=== PATIENT | male | born 1950 | race Two or more races ===

== ENCOUNTER 2025-02-13 08:49 | Inpatient (IN) | payer OTHER ==
[~2025-02-13] VITALS: Ht 134.6 cm; Wt 63.5 kg
[2025-02-13] MEDS ORDERED: SIMVASTATIN80 MG PO (09:01)
[2025-02-13] MEDS ORDERED: COZAAR50 MG PO (09:01)
[2025-02-13] MEDS ORDERED: CHILDREN'S ASPI81 MG PO (09:01)
[2025-02-13] MEDS ORDERED: ONDANSETRON HCL 2 MG/ML VIAL IV STA (09:02)
[2025-02-13] MEDS ORDERED: 0.9 % SODIUM CHLORIDE 1,000 ML IV STA ×2 (09:02→13:06)
[2025-02-13] MEDS ORDERED: FAMOTIDINE/PF 20 MG/2 ML VIAL IV STA (09:02)
[2025-02-13 10:01] LABS: BASO % 0.2 % (0.1-1.2); EOS # 0.00 (0.04-0.54); EOS % 0.0 % (0.7-7.0); LYMPH # 0.97 (1.18-3.74); LYMPH % 5.7 % (19.3-53.1); MEAN PLATELET VOLUME 11.20 fl (9.4-12.4); MONO # 0.98 (0.24-0.82); MONO % 5.8 % (4.7-12.5); NEUT # 14.84 (1.56-6.13); NEUT % 87.4 % (34.0-71.1); RED CELL DISTRIBUTION WIDTH 13.3 % (11.6-14.4)
[2025-02-13 10:28] LABS: INR 1.02
[2025-02-13 10:46] LABS: ALT/SGPT 18.0 U/L (12-78); AST/SGOT 29.0 U/L (15-37); BILIRUBIN TOTAL 0.69 mg/dL (0.3-1.2); BUN CREA RATIO 13.0 (7.0-25.0); CREATININE SERUM 0.71 mg/dL (0.70-1.30); GFR 107.86; GLOBULINA 4.4 G/DL (2.4-3.5); GLUCOSE FASTING 112.0 mg/dL (65-100); OSMOLALITY SERUM 279.0 MOSM/KG (275-295)
[2025-02-13 12:49] LABS: URINE APPEARANCE Clear; URINE BILIRRUBIN Negative (NEGATIVE); URINE BLOOD Small; URINE COLOR Yellow; URINE GLUCOSE Negative (NEGATIVE); URINE KETONE 15 (NEGATIVE); URINE LEUKOCYTE Negative; URINE NITRATE Negative; URINE PROTEIN Trace (NEGATIVE); URINE UROBILINOGEN 0.2 E.U./dl
[2025-02-13 12:53] LABS: URINE BACTERIA 5.9 uL (0.0-1933); URINE EPITHELIAL CELLS 4.6 uL (0.0-38.8); URINE RBC 62.4 uL (0.0-20.8); URINE WBC 3.9 uL (0.0-23.2)
[2025-02-13 12:58] LABS: URINE CAST 0.00 uL (0.0-1.40)
[2025-02-13] MEDS ORDERED: CEFTRIAXONE SODIUM 2,000 MG VIAL ONE (13:59)
[2025-02-13] MEDS ORDERED: FAMOTIDINE/PF 20 MG/2 ML VIAL ONE (13:59)
[2025-02-13] MEDS ORDERED: CEFTRIAXONE SODIUM 2,000 MG VIAL IV ONE (14:00)
[2025-02-13] MEDS ORDERED: CIPROFLOXACIN HCL 500 MG TABLET PO SCH (16:58)
[2025-02-13] MEDS ORDERED: MORPHINE SULFATE 2 MG/ML SYRINGE IV SCH (16:59)
[2025-02-13] MEDS ORDERED: 0.9 % SODIUM CHLORIDE 1,000 ML IV SCH (17:00)
[2025-02-13] MEDS ORDERED: CIPROFLOXACIN IN 5 % DEXTROSE 400 MG/200 ML PIGGYBAG IV SCH (17:29)
[2025-02-13] MEDS ORDERED: CIPROFLOXACIN IN 5 % DEXTROSE 400 MG/200 ML PIGGYBAG IV ONE (17:30)
[2025-02-13] MEDS ORDERED: METOPROLOL TARTRATE 50 MG TABLET PO SCH (21:03)
[2025-02-13] MEDS ORDERED: AMLODIPINE BESYLATE 5 MG TABLET PO SCH (21:03)
[2025-02-13] MEDS ORDERED: LOSARTAN POTASSIUM 100 MG TABLET PO SCH (21:03)
[2025-02-13] MEDS ORDERED: MORPHINE SULFATE 2 MG/ML SYRINGE IV PRN (21:04)
[2025-02-13] MEDS ORDERED: FAMOTIDINE/PF 20 MG in 0.9 % SODIUM CHLORIDE 8 ML IV PUSH SCH (21:10)
[2025-02-13] MEDS ORDERED: ONDANSETRON HCL 4 MG in 0.9 % SODIUM CHLORIDE 50 ML IV PRN (21:15)
[2025-02-13] MEDS ORDERED: RINGERS SOLUTION,LACTATED 1,000 ML IV SCH (21:15)
[2025-02-14 06:39] VITALS: BP 130/90
[2025-02-14 06:44] LABS: BASO % 0.1 % (0.1-1.2); EOS # 0.00 (0.04-0.54); EOS % 0.0 % (0.7-7.0); LYMPH # 1.14 (1.18-3.74); LYMPH % 7.5 % (19.3-53.1); MEAN PLATELET VOLUME 10.90 fl (9.4-12.4); MONO # 1.03 (0.24-0.82); MONO % 6.7 % (4.7-12.5); NEUT # 13.04 (1.56-6.13); NEUT % 85.4 % (34.0-71.1); RED CELL DISTRIBUTION WIDTH 13.3 % (11.6-14.4)
[2025-02-14 08:30] VITALS: BP 159/83
[2025-02-14 17:08] VITALS: BP 139/73; O2SAT 96
[2025-02-15 02:02] VITALS: BP 155/80; O2SAT 97
[2025-02-15 06:19] LABS: BASO % 0.4 % (0.1-1.2); EOS # 0.02 (0.04-0.54); EOS % 0.1 % (0.7-7.0); LYMPH # 1.02 (1.18-3.74); LYMPH % 7.5 % (19.3-53.1); MEAN PLATELET VOLUME 11.50 fl (9.4-12.4); MONO # 1.15 (0.24-0.82); MONO % 8.5 % (4.7-12.5); NEUT # 11.28 (1.56-6.13); NEUT % 83.1 % (34.0-71.1); RED CELL DISTRIBUTION WIDTH 13.5 % (11.6-14.4)
[2025-02-15 09:48] VITALS: BP 166/94; O2SAT 95
[2025-02-15 17:19] VITALS: BP 150/80; O2SAT 92
[2025-02-16 01:27] VITALS: BP 150/84; O2SAT 99
[2025-02-16 08:00] VITALS: BP 160/92; O2SAT 96
[2025-02-16] MEDS ORDERED: AMLODIPINE BESYLATE 5 MG TABLET PO SCH (17:00)
[2025-02-16 18:47] VITALS: BP 132/82
[2025-02-17 02:34] VITALS: BP 118/75; O2SAT 96
[2025-02-17 09:12] VITALS: BP 158/74; O2SAT 97
[2025-02-17 11:38] LABS: BASO % 0.5 % (0.1-1.2); EOS # 0.02 (0.04-0.54); EOS % 0.2 % (0.7-7.0); LYMPH # 1.83 (1.18-3.74); LYMPH % 13.9 % (19.3-53.1); MEAN PLATELET VOLUME 10.50 fl (9.4-12.4); MONO # 1.03 (0.24-0.82); MONO % 7.8 % (4.7-12.5); NEUT # 10.17 (1.56-6.13); NEUT % 77.1 % (34.0-71.1); RED CELL DISTRIBUTION WIDTH 13.3 % (11.6-14.4)
[2025-02-17 12:21] LABS: ALT/SGPT 25.0 U/L (12-78); AST/SGOT 21.0 U/L (15-37); BILIRUBIN TOTAL 0.77 mg/dL (0.3-1.2); BUN CREA RATIO 13.0 (7.0-25.0); CREATININE SERUM 0.85 mg/dL (0.70-1.30); GFR 87.64; GLOBULINA 3.5 G/DL (2.4-3.5); GLUCOSE FASTING 117.0 mg/dL (65-100); OSMOLALITY SERUM 285.0 MOSM/KG (275-295)
[2025-02-17] MEDS ORDERED: POTASSIUM CHLORIDE IN WATER 100 ML IV SCH ×2 (13:00→16:00)
[2025-02-17] MEDS ORDERED: MAGNESIUM SULFATE IN WATER 50 ML IV NR (13:00)
[2025-02-17] MEDS ORDERED: POTASSIUM CHLORIDE 10 MEQ CAPSULE PO NR (14:00)
[2025-02-17 15:54] VITALS: BP 134/83; O2SAT 97
[2025-02-18 01:01] VITALS: BP 156/79; O2SAT 98
[2025-02-18 06:42] LABS: BUN CREA RATIO 19.0 (7.0-25.0); CREATININE SERUM 0.54 mg/dL (0.70-1.30); GFR 147.93; GLUCOSE FASTING 115.0 mg/dL (65-100); OSMOLALITY SERUM 287.0 MOSM/KG (275-295)
[2025-02-18 09:27] VITALS: BP 134/83; O2SAT 97
[2025-02-18 18:32] VITALS: BP 111/65; O2SAT 95
[2025-02-19 02:02] VITALS: BP 130/77; O2SAT 97
[2025-02-19 09:39] VITALS: BP 116/74; O2SAT 97
[2025-02-19 20:38] VITALS: BP 149/89
[2025-02-20 02:41] VITALS: BP 151/91; O2SAT 98
[2025-02-20 08:28] VITALS: BP 113/70; O2SAT 97
== END 2025-02-20 11:50 | disposition home or self-care (01) | DRG 440 ==
LOC: EDSEX 08:49 → ER 08:49 → MEDI 21:17
PROVIDERS: General Practice; Physician Assistant Medical; ADMIT Internal Medicine; ATTEND Internal Medicine
PROC: BW21YZZ Computerized Tomography (CT Scan) of Abdomen and Pelvis using Other Contrast (ICD-10-PCS; principal; 2025-02-13)
PROC: BF37ZZZ Magnetic Resonance Imaging (MRI) of Pancreas (ICD-10-PCS; 2025-02-14)
DX: K85.90 Acute pancreatitis without necrosis or infection, unspecified (principal); D72.828 Other elevated white blood cell count; K59.09 Other constipation; K80.20 Calculus of gallbladder without cholecystitis without obstruction